=== PATIENT | female | born 1955 | race Caucasian/White ===

== ENCOUNTER 2023-01-10 08:45 | Day surgery (SDC) | payer MEDICARE ==
[2023-01-06 16:47] LABS: BASOPHILS % (AUTO) 0.5 % (0-1); EOSINOPHILS # (AUTO) 0.3 X10'3 (0-0.9); LYMPHOCYTES # (AUTO) 1.8 X10'3 (1.1-4.8); LYMPHOCYTES % (AUTO) 21.2 % (21-51); MEAN CORPUSCULAR HGB CONC 33.1 g/dL (33.0-36.5); MEAN CORPUSCULAR VOLUME 90.7 FL (78-98); MEAN PLATELET VOLUME 8.1 FL (7.4-10.4); MONOCYTES # (AUTO) 0.9 X10'3 (0-0.9); NEUTROPHILS # (AUTO) 5.3 X10'3 (1.8-7.7); NEUTROPHILS % (AUTO) 64.3 % (42-75); PRE OP HEMATOCRIT 42.7 % (35.0-45.0); PRE OP HEMOGLOBIN 14.1 g/dL (12.0-16.0); PRE OP PLATELET COUNT 370 X10'3 (140-440); RED CELL DISTRIBUTION WIDTH 13.6 % (11.5-14.5)
[2023-01-06 16:55] LABS: ALBUMIN 3.8 G/DL (3.4-5.0); ALBUMIN/GLOBULIN RATIO 1.1 (1.1-1.5); ALKALINE PHOSPHATASE 96 IU/L (46-116); BLOOD UREA NITROGEN 15 MG/DL (7-18); BUN/CREATININE RATIO 15.3 (6.6-38.0); CALCIUM 9.6 MG/DL (8.5-10.1); CHLORIDE 105 MMOL/L (99-107); CREATININE 0.98 MG/DL (0.40-0.90); PRE OP ALT 24 U/L (30-65); PRE OP ANION GAP 8 (8-16); PRE OP AST 22 U/L (10-37); PRE OP BILIRUB, TOTAL 0.3 MG/DL (0.0-1.0); PRE OP GLUCOSE 90 MG/DL (70-104); PRE OP SODIUM 142 MMOL/L (135-145); TOTAL CARBON DIOXIDE 29.1 MMOL/L (24-32); TOTAL PROTEIN 7.3 G/DL (6.4-8.2); eGFR 56 ML/MIN
[2023-01-06 16:58] LABS: PRE OP POTASSIUM 3.5 MMOL/L (3.4-5.1)
[2023-01-10] VITALS (7 sets, daily range): BP systolic 130–153; BP diastolic 68–82
[~2023-01-10] VITALS: Ht 170.2 cm; Wt 61.1 kg
[~2023-01-10 08:45] MED LIST: ADV50500 INH; ALIR150P6 INJ; BUPIVAcaine/PF 5 mg/ml 10ml ONE; CHOL20004 PO; DESL5TAB38 PO; DOCUMENT DATE & TIME OF BETA-BLOCKER PO ONE; EPI PEN; METO25TA6 PO; NASONEX; PRE1T PO; VERA120C3 PO; ZOLP5TAB8 PO; ceFAZolin inj. 2,000 MG in dextrose 5%-water 100 ML IV ONE; famotidine 20mg tablet PO ONE; ringers solution, lacted 1,000 ML IV SCH
[2023-01-10] MEDS ORDERED: ondansetron/PF 4mg/2ml inj IV PRN (09:55)
[2023-01-10] MEDS ORDERED: ringers solution, lacted 1,000 ML IV SCH (09:55)
[2023-01-10] MEDS ORDERED: meperidine/PF 25mg/ml syringe IV PRN ×3 (09:55)
[2023-01-10] MEDS ORDERED: morphine 4 MG/ML inj SYRINge IV PRN (09:55)
[2023-01-10] MEDS ORDERED: labetalol 20mg/4ml (5mg/ml) syringe IV PRN (09:55)
[2023-01-10] MEDS ORDERED: hydrALAZINE 20mg/ml inj. IV PRN (09:55)
[2023-01-10] MEDS ORDERED: morphine 2 MG/ML inj. syringe IV PRN (09:55)
[2023-01-10] MEDS ORDERED: acetaminophen 1,000mg/100ml IV 100 ML IV PRN (09:55)
[2023-01-10] MEDS ORDERED: proCHLORperazine 10 MG/2 ml inj IV PRN (09:55)
[2023-01-10] MEDS ORDERED: midazolam 1 mg/ML 2ml injection ONE (11:12)
[2023-01-10] MEDS ORDERED: fentaNYL/PF 50MCG/1 ML 2ML syringe ONE (11:12)
[2023-01-10] MEDS ORDERED: LIDOcaine 1%/PF 5ML 10 MG/ML VIAL ONE (11:20)
[2023-01-10] MEDS ORDERED: propofol inj 20 ML IV ONE ×2 (11:20→11:36)
[2023-01-10] MEDS ORDERED: BUPIVAcaine 0.5% inj/PF 30 ml vial IJ ONE (11:43)
--- NOTE | 2023-01-10 11:56 | NUR ---
Received from OR via [facility], accompanied by Anesthesiologist DR CROFT and report given by Anesthesiolgist. PT PRESENTS WITH PIV 20G LEFT FOREARM, DRESSING ON RIGHT WRIST/HAND CDI, VSS. Addendum: 01/10/23 at 1216 by Maria E Valdez RN, RN Amended: Links added.
--- NOTE | 2023-01-10 12:56 | NUR ---
PT DC HOME INTO CARE OF DAUGHTER WITHOUT INCIDENT. PT VERBALIZED UNDERSTANDING OF DC DISCHARGE PAPERWORK, EDUCATION AND FOLLOW UP INSTRUCTION. STEADY NARROW INDEPENDENT IN AMBULATION. IV REMOVED IN PACU Addendum: 01/10/23 at 1332 by Emerson Polanco RN Amended: Links added.
== END 2023-01-10 12:56 | disposition home or self-care (01) ==
LOC: PAS 08:45
PROVIDERS: ATTEND Orthopaedic Surgery Hand Surgery
DX: M65.4 Radial styloid tenosynovitis [de Quervain] (principal); S63.591A Other specified sprain of right wrist, initial encounter; M18.11 Unilateral primary osteoarthritis of first carpometacarpal joint, right hand; M19.031 Primary osteoarthritis, right wrist; I10 Essential (primary) hypertension; M19.012 Primary osteoarthritis, left shoulder; M19.011 Primary osteoarthritis, right shoulder; J44.9 Chronic obstructive pulmonary disease, unspecified; I42.9 Cardiomyopathy, unspecified; F41.9 Anxiety disorder, unspecified; F32.A Depression, unspecified; Z90.710 Acquired absence of both cervix and uterus; Z98.890 Other specified postprocedural states; Z72.89 Other problems related to lifestyle; Z88.8 Allergy status to other drugs, medicaments and biological substances; Z82.49 Family history of ischemic heart disease and other diseases of the circulatory system; X58.XXXA Exposure to other specified factors, initial encounter; Y93.89 Activity, other specified; Y92.89 Other specified places as the place of occurrence of the external cause; Y99.8 Other external cause status
CPT/HCPCS: 25000; 29846; 36415; 80053; 82948; 85025; 93005; J0690; J2250; J2704; J3010; J3490; J7030; J7060; J7120; S0020; Z7506; Z7512; A4215; A4618; A6449; A7000